=== PATIENT | male | born 1985 | race Two or more races ===

== ENCOUNTER 2017-07-12 13:37 | Emergency (ER) | payer MEDICAID ==
[~2017-07-12] VITALS: Ht 175.3 cm; Wt 72.6 kg
--- NOTE | 2017-07-12 13:47 | Emergency Room Report ---
History of Present Illness General Chief Complaint: Skin Rash/Abscess Source: EMS Present Illness HPI 32 YO Male presents with c/o acute onset of rash/lesions on the feet bilaterally and other areas of his body. Pt. reports rapid onset over the last 48 hours. Hx of HIV. Not UTD with tetanus, in the process of having his most recent lab results faxed here to ED. Denies recent URI/ illness, IV drug use, or CP. Pt. reports hx of syphilis outbreak 4 years ago that was treated by IM injection. Pt. also mentions he has continued 8/ in severity pain, swelling, and nodule on the left sole where he stepped on a Nail 5 months ago and was never evaluated for this. Pt. reports new medication of chantix recently however was a short course and he finished the medication 1 week ago. Denies new body washes or creams. Denies swelling of the lips, tongue , throat or airway. Denies wheezing, or shortness of breath. Denies genital lesions. Denies recent travel, recent illness or ill contacts. denies blisters, oral lesions, or sloughing of the skin. Allergies: Coded Allergies: No Known Allergies (Unverified , 07/12/17) Patient History Past Medical History: HIV, other Past Surgical History: none Pertinent Family History: none Reviewed Nursing Documentation: PMH: Agreed; PSxH: Agreed Nursing Documentation-PMH Past Medical History: No History, Except For Hx Cardiac Problems: No - HIV Hx Asthma: Yes Review of Systems All Other Systems: negative except mentioned in HPI Physical Exam Vital Signs Date Time Temp Pulse Resp B/P (MAP) Pulse Ox O2 Delivery O2 Flow Rate FiO2 07/12/17 13:42 97.7 84 20 117/67 99 Room Air 97.7 Sp02 EP Interpretation: reviewed, normal General Appearance: no apparent distress, alert, GCS 15, non-toxic Head: normocephalic, atraumatic Eyes: bilateral eye normal inspection, bilateral eye PERRL ENT: hearing grossly normal, normal voice, other - no oral lesions. Neck: full range of motion Respiratory: chest non-tender, lungs clear, normal breath sounds, no rhonchi, no respiratory distress, no wheezing, speaking full sentences Cardiovascular #1: regular rate, rhythm, no edema, normal capillary refill Gastrointestinal: normal bowel sounds, non tender, soft Rectal: deferred Musculoskeletal: back normal, gait/station normal, normal range of motion, non- tender Neurologic: alert, oriented x3, responsive, motor strength/tone normal, sensory intact, speech normal, grossly normal Psychiatric: judgement/insight normal Skin: normal color, warm/dry, well hydrated, rash - rash consisting of target shaped lesions that levi, scant involvement on the soles of the feet bilaterally. lesions primarily on the LE's bilat. no open wounds, various sizes. no crusting or d/c noted, no blisters or sloughing of skin, no painful lesions on the palms, no nail hemorrhages. , other - No open wounds, tunneled palpable swelling/nodule of the left sole, no erythema or increased temperature to palpation. Lymphatic: no adenopathy Medical Decision Making PA Attestation Dr. Nicole is my supervising Physician whom patient management has been discussed with. Diagnostic Impression: Primary Impression: Rash and other nonspecific skin eruption Additional Impression: Elevated erythrocyte sedimentation rate ER Course Pt. presents to the ED c/o progressive rash x 48 hours. also here to have palpable tender lesion that resulted from stepping on a nail 5 months ago. pt. reports new onset of TTP and 8/10 pain after increased walking this week. Ddx considered but are not limited to Abscess, retained fb, cellulitis, scabies , shingles, varicella, dermatitis, urticaria, eczema, tinea, viral exanthem, SJS , syphilis, erythema multiforme just to name a few. Vital signs: are WNL, pt. is afebrile H&PE are most consistent with rash consisting of target shaped lesions that levi, scant involvement on the soles of the feet bilaterally. lesions primarily on the LE's bilat. no open wounds, various sizes. no crusting or d/c noted. no blisters or vesicles. -reviewed pt. most recent labs that was received on ED fax . Viral load is 1.5 and CD4 Count is in the 700's ORDERS: -CBC & CMP: Unremarkable -ESR: elevated. at 32 -Blood Cultures :Pending at time of d/c , Negative growth at 48 hours. ED INTERVENTIONS: -Tdap administered. DISCHARGE: At this time pt. is stable for d/c to home. Will provide printed patient care instructions, and any necessary prescriptions. Care plan and follow up instructions have been discussed with the patient prior to discharge. on 07/14/17 I checked to see if pt. results were back. Pt. had reactive RPR at a titer of 1:32. Pt. was contacted and informed of results. pt. has ID appt. on . D/w pt. That he needs to have treatment, and gave him his titer results to give to his ID provider. pt. later decided he will return in the am to the ED for treatment. -[facility] - reportable disease/STD form was submitted via fax. Labs Test 07/12/17 14:30 White Blood Count 6.3 K/UL (4.8-10.8) Red Blood Count 4.99 M/UL (4.70-6.10) Hemoglobin 14.3 G/DL (14.2-18.0) Hematocrit 44.2 % (42.0-52.0) Mean Corpuscular Volume 89 FL (80-99) Mean Corpuscular Hemoglobin 28.6 PG (27.0-31.0) Mean Corpuscular Hemoglobin Concent 32.3 G/DL (32.0-36.0) Red Cell Distribution Width 11.7 % (11.6-14.8) Platelet Count 290 K/UL (150-450) Mean Platelet Volume 8.9 FL (6.5-10.1) Neutrophils (%) (Auto) 58.4 % (45.0-75.0) Lymphocytes (%) (Auto) 29.6 % (20.0-45.0) Monocytes (%) (Auto) 8.0 % (1.0-10.0) Eosinophils (%) (Auto) 3.0 % (0.0-3.0) Basophils (%) (Auto) 1.0 % (0.0-2.0) Erythrocyte Sedimentation Rate 32 MM/HR (0-15) Sodium Level 139 MMOL/L (136-145) Potassium Level 4.5 MMOL/L (3.5-5.1) Chloride Level 102 MMOL/L (98-107) Carbon Dioxide Level 31 MMOL/L (21-32) Anion Gap 6 mmol/L (5-15) Blood Urea Nitrogen 21 mg/dL (7-18) Creatinine 0.9 MG/DL (0.55-1.30) Estimat Glomerular Filtration Rate > 60 mL/min (>60) Glucose Level 96 MG/DL (74-106) Calcium Level 9.2 MG/DL (8.5-10.1) Rapid Plasma Reagin Reactive (Non Reactive) Rapid Plasma Reagin Confirmation 1:32 (NonRea<1:1) Last Vital Signs Date Time Temp Pulse Resp B/P (MAP) Pulse Ox O2 Delivery O2 Flow Rate FiO2 07/12/17 13:42 97.7 84 20 117/67 99 Room Air 97.7 Disposition: HOME, SELF-CARE Condition: Stable Scripts Prednisone* (PREDNISONE*) 20 Mg Tablet 40 MG ORAL DAILY for 5 Days, #10 TAB Prov: Darcy Balderas 07/12/17 Acetaminophen* (TYLENOL EXTRA STRENGTH*) 500 Mg Tablet 500 MG ORAL Q8H, #20 TAB 0 Refills Prov: Darcy Balderas 07/12/17 Patient Instructions: Erythrocyte Sedimentation Rate, Rash Additional Instructions: Take medications as directed. --RPR and blood cultures were also taken, the results are pending and usually take 3-5 days. If there is any abnormal results you will be contacted. If you do not hear from from us, that is good news and indicates the pending results were normal. Follow up with a Primary Care Provider and Infectious Disease Provider in 3- 5 days, even if your symptoms have resolved. --Please review list of primary care clinics, if you do not already have a primary care provider Return sooner to ED if new symptoms occur, or current symptoms become worse. - Please note that this Emergency Department Report was dictated using [employer] test technician technology software, occasionally this can lead to erroneous entry secondary to interpretation by the dictation equipment. Darcy Balderas July 12, 2017 13:47
[2017-07-12 13:51] VITALS: BP 118/67
[2017-07-12 14:54] LABS: HEMATOCRIT 44.2 % (42.0-52.0); HEMOGLOBIN 14.3 G/DL (14.2-18.0); LYMPHOCYTES % (AUTO) 29.6 % (20.0-45.0); MEAN CORPUSCULAR VOLUME 89 FL (80-99); NEUTROPHILS % (AUTO) 58.4 % (45.0-75.0); PLATELET COUNT 290 K/UL (150-450); RED BLOOD COUNT 4.99 M/UL (4.70-6.10); RED CELL DISTRIBUTION WIDTH 11.7 % (11.6-14.8); WHITE BLOOD COUNT 6.3 K/UL (4.8-10.8)
[2017-07-12 14:58] LABS: ANION GAP 6 mmol/L (5-15); BLOOD UREA NITROGEN 21 mg/dL (7-18); CALCIUM 9.2 MG/DL (8.5-10.1); CARBON DIOXIDE 31 MMOL/L (21-32); CHLORIDE 102 MMOL/L (98-107); CREATININE 0.9 MG/DL (0.55-1.30); POTASSIUM 4.5 MMOL/L (3.5-5.1); SODIUM 139 MMOL/L (136-145)
[2017-07-12] MEDS ORDERED: Tetanus/Diptheria/Pertussis Vaccine 0.5ml Syr IM ONE (15:00)
[2017-07-12] MEDS ORDERED: TYLENOL EXTRA500 MG ORAL (16:18)
[2017-07-12] MEDS ORDERED: PREDNISONE20 MG ORAL (16:18)
[2017-07-12 16:28] VITALS: BP 119/67
== END 2017-07-12 16:37 | disposition home or self-care (01) ==
LOC: EMR 14:12
DX: R21 Rash and other nonspecific skin eruption (principal); Z23 Encounter for immunization; R70.0 Elevated erythrocyte sedimentation rate; J45.909 Unspecified asthma, uncomplicated
CPT/HCPCS: 36415; 80048; 85025; 85651; 86592; 87040; 90471; 90715; 99284